=== PATIENT | female | born 2000 | race Two or more races ===

== ENCOUNTER 2023-04-23 10:14 | Emergency (ER) | payer MEDICAID, OTHER ==
[~2023-04-23] VITALS: Ht 160 cm; Wt 54.5 kg
[2023-04-23 10:25] VITALS: BP 127/88; PULSE 75; RESP 24
[2023-04-23 10:52] VITALS: O2SAT 98
[2023-04-23] MEDS ORDERED: HUR60 MT (11:00)
[2023-04-23] MEDS ORDERED: HYDROcodone-ACET 5/325MG TAB PO ONE (11:00)
[2023-04-23] MEDS ORDERED: CLIN300C70 PO (11:00)
== END 2023-04-23 11:11 | disposition home or self-care (01) ==
LOC: ER 10:14
DX: K02.9 Dental caries, unspecified (principal); Z79.2 Long term (current) use of antibiotics; Z79.899 Other long term (current) drug therapy

== ENCOUNTER 2023-10-13 10:14 | Emergency (ER) | payer MEDICAID ==
[~2023-10-13] VITALS: Ht 160 cm; Wt 60.9 kg
[~2023-10-13 10:14] MED LIST: AUG875T PO; CLIN1CAP70 PO; HUR60 MT
[2023-10-13 14:30] VITALS: BP 102/57; PULSE 59; RESP 18; TEMP 98.6; O2SAT 100
[2023-10-13] MEDS ORDERED: HYDR-4902 PO (15:08)
[2023-10-13] MEDS: DexAMETHasone SOD PHOS 10MG/1ML VIAL INJ IM ONE (15:11)
[2023-10-13] MEDS: HYDROcodone-ACET 5/325MG TAB PO ONE (15:11)
== END 2023-10-13 15:22 | disposition home or self-care (01) ==
LOC: ER 10:14
DX: K04.7 Periapical abscess without sinus (principal); Z79.2 Long term (current) use of antibiotics; Z79.899 Other long term (current) drug therapy
CPT/HCPCS: 96372; 99283; J1100